=== PATIENT | female | born 1950 | race Hispanic/Latino ===

== ENCOUNTER 2022-12-27 20:22 | Observation (INO) | payer MEDICARE, OTHER ==
[2022-12-27 21:42] LABS: #Basophils 0.1 10x3/uL (0.0-0.2); #Eosinphils 0.3 10x3/uL (0.0-0.5); #Monocytes 0.7 10x3/uL (0.0-1.1); #Neutrophils 5.1 10x3/uL (1.5-8.4); %Basophils 0.6 % (0.0-2.0); %Eosinophils 3.3 % (0.0-6.0); %Monocytes 7.6 % (0.0-10.0); %Neutrophils 58.3 % (40.0-75.0); Hemoglobin 13.5 g/dL (12.0-15.5); Mean Corpuscular HGB CONC 34.4 g/dL (32.0-36.0); Mean Corpuscular Hemoglobin 31.8 pg (27.0-33.0); Mean Corpuscular Volume 92.7 fl (81.6-98.3); Mean Platelet Volume 10.5 fl (7.4-10.4); Platelet Count 190 10x3/uL (150-450); RBC Distribution Width 12.7 % (11.5-14.5); Red Blood Cell (RBC) Count 4.24 10x6/uL (3.90-5.03); White Blood Cell (WBC) Count 8.8 10x3/uL (3.5-10.5)
[2022-12-27 21:45] LABS: ALT (SGPT) 14 U/L (8-55); AST (SGOT) 20 U/L (5-34); Albumin 4.3 g/dL (3.4-4.8); Alkaline Phosphatase 88 U/L (40-110); Anion Gap 14 mmol/L (10-20); BUN (Urea Nitrogen) 20 mg/dL (9.8-20.1); Bilirubin, Total 0.6 mg/dL (0.2-1.2); CK (CPK) 100 U/L (29-168); Calc. Creatinine Clearance 0 mL/min (70-130); Calcium 9.1 mg/dL (7.8-10.44); Carbon Dioxide 23 mmol/L (23-31); Chloride 106 mmol/L (98-107); Estimated GFR 45; Glucose 84 mg/dL (80-115); Protein, Total 7.3 g/dL (5.8-8.1); Sodium 139 mmol/L (136-145)
[2022-12-27] MEDS ORDERED: Morphine 4 MG/ML VIAL ONE (21:48)
[2022-12-27] MEDS ORDERED: Ondansetron PF 4 MG/2 ML Vial ONE (21:48)
[2022-12-27] MEDS ORDERED: Boostrix 0.5 ML (Tdap) VIAL (>/=7 yrs of age) ONE (21:48)
[2022-12-27 22:01] LABS: PTT 23.3 sec (22.0-33.0)
[2022-12-27 22:21] LABS: Platelet Morphology Comment Platelets Normal; RBC Morph Comment Within Normal Limits
[2022-12-27] MEDS ORDERED: Ondansetron PF 4 MG/2 ML Vial IVP PRN (22:29)
[2022-12-27] MEDS ORDERED: Guaifenesin DM 100-10/5 ML UDCUP PO PRN (22:29)
[2022-12-27] MEDS ORDERED: Zolpidem Tartrate 5 MG TAB PO PRN (22:29)
[2022-12-27] MEDS ORDERED: Senokot S 8.6-50 MG TAB PO PRN (22:29)
[2022-12-27] MEDS ORDERED: Acetaminophen 325 MG TAB PO PRN (22:29)
[2022-12-27] MEDS ORDERED: Calcium Carbonate 500 MG ChewTAB PO PRN (22:29)
[2022-12-27] MEDS ORDERED: cloNIDine 0.1 MG TAB PO PRN (22:33)
[2022-12-27] MEDS ORDERED: Morphine 2 MG/ML VIAL SLOW IVP PRN (22:38)
[2022-12-27] MEDS ORDERED: Lactated Ringer's 1,000 ML IV SCH (22:45)
[2022-12-28 01:20] VITALS: BMI 37.1
[2022-12-28] MEDS ORDERED: Acetaminophen 325 MG TAB ONE (01:26)
[2022-12-28 02:45] LABS: #Basophils 0.1 10x3/uL (0.0-0.2); #Eosinphils 0.4 10x3/uL (0.0-0.5); #Monocytes 0.6 10x3/uL (0.0-1.1); #Neutrophils 5.9 10x3/uL (1.5-8.4); %Basophils 0.6 % (0.0-2.0); %Eosinophils 3.8 % (0.0-6.0); %Lymphocytes 30.4 % (18.0-47.0); %Monocytes 6.2 % (0.0-10.0); %Neutrophils 58.7 % (40.0-75.0); Hemoglobin 13.8 g/dL (12.0-15.5); Mean Corpuscular HGB CONC 34.4 g/dL (32.0-36.0); Mean Corpuscular Hemoglobin 31.6 pg (27.0-33.0); Mean Corpuscular Volume 91.8 fl (81.6-98.3); Mean Platelet Volume 9.6 fl (7.4-10.4); Platelet Count 190 10x3/uL (150-450); RBC Distribution Width 12.4 % (11.5-14.5); Red Blood Cell (RBC) Count 4.37 10x6/uL (3.90-5.03)
[2022-12-28 02:55] LABS: INR-International Normal Ratio 1.1; PTT 28.5 sec (22.0-33.0); Prothrombin Time 11.5 sec (9.5-12.1)
[2022-12-28 03:02] LABS: ALT (SGPT) 13 U/L (8-55); AST (SGOT) 18 U/L (5-34); Albumin 4.2 g/dL (3.4-4.8); Alkaline Phosphatase 85 U/L (40-110); Anion Gap 14 mmol/L (10-20); BUN (Urea Nitrogen) 16 mg/dL (9.8-20.1); Bilirubin, Total 0.7 mg/dL (0.2-1.2); CK (CPK) 95 U/L (29-168); Calc. Creatinine Clearance 64 mL/min (70-130); Calcium 9.3 mg/dL (7.8-10.44); Carbon Dioxide 24 mmol/L (23-31); Chloride 105 mmol/L (98-107); Estimated GFR 55; Globulin 3.1 g/dL (2.4-3.5); Glucose 119 mg/dL (80-115); Potassium 4.3 mmol/L (3.5-5.1); Protein, Total 7.3 g/dL (5.8-8.1); Sodium 139 mmol/L (136-145)
[2022-12-28] MEDS ORDERED: HYDROcodone/Acetaminophen 5/325 mg Tablet ONE ×2 (04:00→09:18)
[2022-12-28] MEDS: HYDROcodone/Acetaminophen 5/325 mg Tablet PO PRN ×2 (04:04→09:23)
[2022-12-28] MEDS ORDERED: Metoprolol Tartrate 50 MG TAB PO SCH (09:00)
[2022-12-28] MEDS ORDERED: Sertraline 100 MG TAB PO SCH (09:00)
[2022-12-28] MEDS ORDERED: cloNIDine 0.1 MG TAB PO SCH (09:00)
[2022-12-28] MEDS ORDERED: Lisinopril 20 MG TAB PO SCH (09:00)
[2022-12-28] MEDS ORDERED: Amlodipine 5 MG TAB PO SCH (09:00)
[2022-12-28] MEDS ORDERED: Cholecalciferol 1,000 UNITS (25 MCG) TAB PO SCH (09:00)
[2022-12-28] MEDS ORDERED: Atorvastatin Calcium 10 MG TAB PO SCH (21:00)
== END 2022-12-28 09:30 | disposition home or self-care (01) ==
LOC: CSHERS 20:22 → CSHERHOLD 22:29 → INTOOBSV 12-28 00:57 → UNDOADMOB 12-28 00:57 → CSHERHOLD 12-28 00:57 → UNDODISOB 12-28 09:30
PROVIDERS: ADMIT Student in an Organized Health Care Education/Training Program; ATTEND Nurse Practitioner Family
DX: T63.001A Toxic effect of unspecified snake venom, accidental (unintentional), initial encounter (principal); I10 Essential (primary) hypertension; E78.5 Hyperlipidemia, unspecified; F41.9 Anxiety disorder, unspecified; F32.9 Major depressive disorder, single episode, unspecified; F32.A Depression, unspecified; N28.9 Disorder of kidney and ureter, unspecified; Z79.899 Other long term (current) drug therapy; Z88.5 Allergy status to narcotic agent
CPT/HCPCS: 80053 ×2; 82550 ×2; 84484; 85025 ×2; 85384 ×2; 85610 ×2; 85730 ×2; 87040; 87149 ×2; 90471; 90715; 93005; 96374; 99283; G0378 ×2; 36415; J2270; J2405; J7120